=== PATIENT | male | born 1990 | race Caucasian/White ===

== ENCOUNTER 2016-08-21 18:13 | Emergency (ER) | payer SELFPAY ==
[~2016-08-21] VITALS: Ht 180.3 cm; Wt 90.9 kg
[~2016-08-21 18:13] MED LIST: BACTRIM,SEPT1 TABLET PO; BACTROBAN OINTM22 GM TP; CLEOCIN300 MG PO; CLINDAMYCIN HC300 MG PO; DOXYCYCLINE HY100 MG PO; FIORICET WI1 CAPSULE PO; HYDROCODON-ACE1 EAC7 PO; MEDROL DOSEPAK4 MG PO; MOTRIN800 MG PO; NAPROSYN500 MG PO; PERCOCET 5/31 TABLET PO; REGLAN10 MG PO; TRAMADOL HCL50 MG PO; TYLENOL WITH C1 EACH PO; VIBRAMYCIN100 MG PO; VICODIN 5-3001 EACH PO; ZOFRAN4 MG PO
[2016-08-21] MEDS ORDERED: CEFTIN250 MG PO (19:02)
[2016-08-21 19:50] VITALS: BP 115/57
== END 2016-08-21 19:50 | disposition home or self-care (01) ==
LOC: EME 18:13
DX: H66.92 Otitis media, unspecified, left ear (principal)
CPT/HCPCS: 99281; 99284

== ENCOUNTER 2016-09-15 00:54 | Emergency (ER) | payer SELFPAY ==
[~2016-09-15] VITALS: Ht 180.3 cm; Wt 88.6 kg
[~2016-09-15 00:54] MED LIST changes: +CEFTIN250 MG PO
[2016-09-15] MEDS ORDERED: ALLEGRA-D 121 TABLET PO (02:27)
[2016-09-15] MEDS ORDERED: FLONASE16 G1 BOTH NARES (02:27)
[2016-09-15 02:35] VITALS: BP 136/81
== END 2016-09-15 02:35 | disposition home or self-care (01) ==
LOC: EME 00:54
DX: H69.80 Other specified disorders of Eustachian tube, unspecified ear (principal)
CPT/HCPCS: 99281; 99283

== ENCOUNTER 2017-01-10 04:43 | Emergency (ER) | payer SELFPAY ==
[~2017-01-10] VITALS: Ht 180.3 cm; Wt 82.5 kg
[~2017-01-10 04:43] MED LIST changes: +ALLEGRA-D 121 TABLET PO; +FLONASE16 G1 BOTH NARES
[2017-01-10 05:13] LABS: ADD MIUA? YES; BILIRUBIN SMALL; BLOOD NEGATIVE; COLOR AMBER ((YELLOW)); GLUCOSE (STRIP) NEGATIVE; KETONES 5; LEUKOCYTES NEGATIVE; NITRITE NEGATIVE; PROTEIN (STRIP) 100; SPECIFIC GRAVITY 1.036 (1.000-1.030)
[2017-01-10 05:22] LABS: BACTERIA 1+ /HPF; EPITHELIAL CELLS RARE /HPF; MUCUS 3+ /LPF; RED BLOOD CELLS 0-5 /HPF (0-5); UCUL ADDED? NO; WHITE BLOOD CELLS 0-5 /HPF (0-5)
[2017-01-10 05:26] LABS: CHLORIDE 106 mEq/L (99-109); POTASSIUM 3.5 mEq/L (3.7-5.4); SODIUM 143 mEq/L (136-147)
[2017-01-10 05:28] LABS: GLUCOSE 92 mg/dL (70-99)
[2017-01-10 05:30] LABS: ANION GAP 10 MEQ/L (2-14)
[2017-01-10 05:32] LABS: GFR ESTIMATE (CALCULATED) > 59 mL/min/
[2017-01-10 05:33] LABS: UREA NITROGEN (BUN) 10 mg/dL (9-23)
[2017-01-10 05:37] LABS: HEMATOCRIT 44.3 % (38.0-50.0); MCH 31.2 PG (29.0-34.0); MCHC 34.8 G/DL (30.0-36.0); MCV 89.9 FL (86-99); MEAN PLAT.VOLUME 9.5 uM^3 (9.0-12.4); PLATELET COUNT 245 K/uL (156-360); RBC DIS.WIDTH-CV 12.9 % (11.8-14.6); RBC DIS.WIDTH-SD 42.5 % (39-53); RED BLOOD COUNT 4.93 M/uL (4.00-5.50); WHITE BLOOD COUNT 10.5 K/uL (4.1-10.2)
[2017-01-10] MEDS ORDERED: CIPRO500 MG PO (06:54)
[2017-01-10 07:04] VITALS: BP 122/78
== END 2017-01-10 07:08 | disposition home or self-care (01) ==
LOC: EME 04:43
DX: N39.0 Urinary tract infection, site not specified (principal); R10.9 Unspecified abdominal pain; R19.7 Diarrhea, unspecified; F17.200 Nicotine dependence, unspecified, uncomplicated; Z88.0 Allergy status to penicillin
CPT/HCPCS: 74176; 80048; 81003; 85027; 99281; 99284

== ENCOUNTER 2017-08-22 17:55 | Emergency (ER) | payer SELFPAY ==
[~2017-08-22] VITALS: Ht 180.3 cm; Wt 81.1 kg
[~2017-08-22 17:55] MED LIST changes: +CIPRO500 MG PO
[2017-08-22 18:30] LABS: APPEARANCE CLEAR ((CLEAR)); BILIRUBIN NEGATIVE; BLOOD NEGATIVE; COLOR YELLOW ((YELLOW)); GLUCOSE (STRIP) NEGATIVE; KETONES NEGATIVE; LEUKOCYTES NEGATIVE; NITRITE NEGATIVE; PROTEIN (STRIP) NEGATIVE; SPECIFIC GRAVITY 1.008 (1.000-1.030); UCUL ADDED? NO; UROBILINOGEN 0.2 MG/DL (0.2-1.0)
[2017-08-22 18:34] LABS: HEMATOCRIT 44.4 % (38.0-50.0); HEMOGLOBIN 15.5 G/DL (12.5-16.6); MCH 30.8 PG (29.0-34.0); MCHC 34.9 G/DL (30.0-36.0); MCV 88.3 FL (86-99); PLATELET COUNT 215 K/uL (156-360); RBC DIS.WIDTH-CV 13.2 % (11.8-14.6); RBC DIS.WIDTH-SD 42.1 % (39-53); RED BLOOD COUNT 5.03 M/uL (4.00-5.50); WHITE BLOOD COUNT 10.1 K/uL (4.1-10.2)
[2017-08-22 18:50] LABS: ALBUMIN 4.5 g/dL (3.2-4.8); CHLORIDE 101 mEq/L (99-109); POTASSIUM 3.6 mEq/L (3.7-5.4); SODIUM 138 mEq/L (136-147)
[2017-08-22 18:52] LABS: GLUCOSE 96 mg/dL (70-99); TOTAL PROTEIN 7.5 g/dL (6.4-8.3)
[2017-08-22 18:54] LABS: TOTAL BILIRUBIN 0.6 mg/dL (0.0-1.0)
[2017-08-22 18:56] LABS: ALKALINE PHOSPHATASE 95 IU/L (3-129); CREATININE 0.9 mg/dL (0.6-1.3); GFR ESTIMATE (CALCULATED) > 59 mL/min/ (58.99-99999)
[2017-08-22 18:57] LABS: UREA NITROGEN (BUN) 10 mg/dL (9-23)
[2017-08-22 18:58] LABS: AST (GOT) 28 IU/L (2-34)
[2017-08-22 18:59] LABS: ALT (GPT) 15 IU/L (3-49)
[2017-08-22] MEDS ORDERED: BENTYL10 MG PO (19:40)
[2017-08-22] MEDS ORDERED: COLACE100 MG PO (19:40)
[2017-08-22 19:49] LABS: SOURCE URINE
[2017-08-22 20:03] VITALS: BP 121/78
[2017-08-24 13:46] LABS: CHLAMYDIA TRACHOMATIS NEGATIVE; NEISSERIA GONORRHOEAE NEGATIVE
== END 2017-08-22 20:04 | disposition home or self-care (01) ==
LOC: EME 17:55 → EXP 17:55
PROVIDERS: Physician Assistant
DX: K59.00 Constipation, unspecified (principal); Z88.0 Allergy status to penicillin; F17.200 Nicotine dependence, unspecified, uncomplicated
CPT/HCPCS: 80053; 81003; 85027; 87491; 87591; 99281; 99284

== ENCOUNTER 2017-10-09 22:12 | Emergency (ER) | payer SELFPAY ==
[~2017-10-09] VITALS: Ht 180.3 cm; Wt 82.4 kg
[~2017-10-09 22:12] MED LIST changes: +BENTYL10 MG PO; +COLACE100 MG PO
[2017-10-09 22:15] VITALS: BP 141/85
[2017-10-09 23:34] LABS: APPEARANCE CLEAR ((CLEAR)); BILIRUBIN NEGATIVE; BLOOD NEGATIVE; COLOR YELLOW ((YELLOW)); GLUCOSE (STRIP) NEGATIVE; KETONES NEGATIVE; LEUKOCYTES NEGATIVE; NITRITE NEGATIVE; PROTEIN (STRIP) NEGATIVE; SPECIFIC GRAVITY 1.014 (1.000-1.030); UCUL ADDED? NO; UROBILINOGEN 0.2 MG/DL (0.2-1.0)
== END 2017-10-09 23:22 | disposition left against medical advice (07) ==
LOC: EME 22:12
DX: R10.9 Unspecified abdominal pain (principal); Z53.21 Procedure and treatment not carried out due to patient leaving prior to being seen by health care provider
CPT/HCPCS: 81003

== ENCOUNTER 2017-10-14 12:39 | Emergency (ER) | payer SELFPAY ==
[~2017-10-14] VITALS: Ht 180.3 cm; Wt 83.4 kg
[2017-10-14 13:05] LABS: SOURCE URINE
[2017-10-14 14:31] LABS: HEMATOCRIT 43.7 % (38.0-50.0); HEMOGLOBIN 15.1 G/DL (12.5-16.6); MCH 31.5 PG (29.0-34.0); MCHC 34.6 G/DL (30.0-36.0); MCV 91.2 FL (86-99); PLATELET COUNT 203 K/uL (156-360); RBC DIS.WIDTH-CV 13.8 % (11.8-14.6); RBC DIS.WIDTH-SD 46.8 % (39-53); RED BLOOD COUNT 4.79 M/uL (4.00-5.50); WHITE BLOOD COUNT 8.9 K/uL (4.1-10.2)
[2017-10-14 14:44] LABS: CHLORIDE 108 mEq/L (99-109); SODIUM 142 mEq/L (136-147)
[2017-10-14 14:45] LABS: GLUCOSE 92 mg/dL (70-99)
[2017-10-14 14:49] LABS: CREATININE 0.7 mg/dL (0.6-1.3); GFR ESTIMATE (CALCULATED) > 59 mL/min/ (58.99-99999)
[2017-10-14 14:50] LABS: UREA NITROGEN (BUN) 7 mg/dL (9-23)
[2017-10-14 15:17] LABS: APPEARANCE CLEAR ((CLEAR)); COLOR STRAW ((YELLOW)); LEUKOCYTES NEGATIVE; NITRITE NEGATIVE; SPECIFIC GRAVITY 1.006 (1.000-1.030)
[2017-10-14 15:18] LABS: BILIRUBIN NEGATIVE; BLOOD NEGATIVE; GLUCOSE (STRIP) NEGATIVE; KETONES NEGATIVE; PROTEIN (STRIP) NEGATIVE; UCUL ADDED? NO; UROBILINOGEN 0.2 MG/DL (0.2-1.0)
[2017-10-14 16:55] VITALS: BP 135/80
[2017-10-15 13:29] LABS: CHLAMYDIA TRACHOMATIS NEGATIVE; NEISSERIA GONORRHOEAE NEGATIVE
== END 2017-10-14 16:56 | disposition home or self-care (01) ==
LOC: EME 12:39
PROVIDERS: Nurse Practitioner Family; Physician Assistant
DX: R10.31 Right lower quadrant pain (principal); R10.32 Left lower quadrant pain; R30.0 Dysuria; Z20.2 Contact with and (suspected) exposure to infections with a predominantly sexual mode of transmission; F17.200 Nicotine dependence, unspecified, uncomplicated; Z87.440 Personal history of urinary (tract) infections; Z88.0 Allergy status to penicillin
CPT/HCPCS: 74176; 80048; 81003; 85027; 87491; 87591; 99281; 99284; J0696